=== PATIENT | male | born 1980 | race Caucasian/White ===

== ENCOUNTER 2016-10-17 18:42 | Emergency (ER) | payer MEDICAID, OTHER ==
[2016-10-17 18:47] VITALS: BP 164/83; PULSE 87; RESP 16; TEMP 98.3; O2SAT 97
--- NOTE | 2016-10-17 20:05 | ED PDOC ---
HPI: Psych/Substance Abuse Time Seen by Provider: 10/17/16 18:56 Chief Complaint (Nursing): Alcohol Ingestion Past Medical History Vital Signs: Last Vital Signs Temp 98.3 F 10/17/16 18:44 Pulse 87 10/17/16 18:44 Resp 16 10/17/16 18:44 BP 164/83 H 10/17/16 18:44 Pulse Ox 97 10/17/16 18:44 - Family History Family History: States: Unknown Family Hx - Immunization History Hx Tetanus Toxoid Vaccination: No Hx Influenza Vaccination: No Hx Pneumococcal Vaccination: No - Home Medications Home Medications: Ambulatory Orders Medication Instructions Recorded Ibuprofen [Motrin Tab] 800 mg PO Q8 #15 tab 12/26/15 - Allergies Allergies/Adverse Reactions: Allergies Allergy/AdvReac Type Severity Reaction Status Date / Time No Known Allergies Allergy Verified 12/26/15 10:37 - ECG O2 Sat by Pulse Oximetry: 97 Disposition - Clinical Impression Clinical Impression: Alcohol abuse - Patient ED Disposition Is Patient to be Admitted: No Counseled Patient/Family Regarding: Diagnosis, Need For Followup - Disposition Disposition: Routine/Home Disposition Time: 20:05 Condition: GOOD Instructions: Abuse of Alcohol (ED)
== END 2016-10-17 21:14 | disposition home or self-care (01) ==
LOC: H.ER 18:42
DX: F10.10 Alcohol abuse, uncomplicated (principal)

== ENCOUNTER 2016-12-08 05:45 | Emergency (ER) | payer MEDICAID ==
[2016-12-08 06:03] VITALS: BP 157/94; PULSE 96; RESP 16; TEMP 98.9; O2SAT 98
--- NOTE | 2016-12-08 06:26 | ED PDOC ---
HPI: Psych/Substance Abuse Time Seen by Provider: 12/08/16 05:58 Chief Complaint (Nursing): Psychiatric Evaluation Chief Complaint (Provider): depression, SI History Per: Patient History/Exam Limitations: no limitations Onset/Duration Of Symptoms: Hrs Current Symptoms Are (Timing): Still Present Additional Complaint(s): 35yo male presents to the ED with c/o depression and thoughts of killing himself lately. Patient reports he was kicked out of home by his sister. Admits to smoking PCP. Denies any other medical or psychiatric complaints. Past Medical History Reviewed: Historical Data, Nursing Documentation, Vital Signs Vital Signs: Last Vital Signs Temp 98.9 F 12/08/16 05:59 Pulse 96 H 12/08/16 05:59 Resp 16 12/08/16 05:59 BP 157/94 H 12/08/16 05:59 Pulse Ox 98 12/08/16 05:59 - Medical History PMH: No Chronic Diseases - Surgical History Surgical History: No Surg Hx - Family History Family History: States: No Known Family Hx - Social History Drugs: Other (PCP ) - Immunization History Hx Tetanus Toxoid Vaccination: No Hx Influenza Vaccination: No Hx Pneumococcal Vaccination: No - Home Medications Home Medications: Ambulatory Orders Medication Instructions Recorded Ibuprofen [Motrin Tab] 800 mg PO Q8 #15 tab 12/26/15 - Allergies Allergies/Adverse Reactions: Allergies Allergy/AdvReac Type Severity Reaction Status Date / Time No Known Allergies Allergy Verified 12/26/15 10:37 Review of Systems ROS Statement: Except As Marked, All Systems Reviewed And Found Negative Psych: Positive for: Depression, Suicidal ideation Physical Exam - Reviewed Nursing Documentation Reviewed: Yes Vital Signs Reviewed: Yes - Physical Exam Appears: Positive for: No Acute Distress (depressed appearing ) Head Exam: Positive for: ATRAUMATIC, NORMAL INSPECTION, NORMOCEPHALIC Skin: Positive for: Normal Color, Warm, Dry Eye Exam: Positive for: Normal appearance, EOMI, PERRL ENT: Positive for: Normal ENT Inspection Neck: Positive for: Normal, Painless ROM, Supple Cardiovascular/Chest: Positive for: Regular Rate, Rhythm. Negative for: Murmur , Tachycardia Respiratory: Positive for: Normal Breath Sounds. Negative for: Wheezing, Respiratory Distress Gastrointestinal/Abdominal: Positive for: Normal Exam, Soft. Negative for: Tenderness Back: Positive for: Normal Inspection. Negative for: L CVA Tenderness, R CVA Tenderness Extremity: Positive for: Normal ROM. Negative for: Deformity, Swelling Neurologic/Psych: Positive for: Alert, Oriented - ECG O2 Sat by Pulse Oximetry: 98 Pulse Ox Interpretation: Normal (RA) Medical Decision Making Medical Decision Makin: Impression: depression Plan: crisis eval reassess [id number]: Patient evaluated by crisis and cleared for d/c. Return precautions given. Scribe Attestation: Documented by Jeyson Kaplan acting as a scribe for James Eli MD. Provider Scribe Attestation: All medical record entries made by the Scribe were at my direction and personally dictated by me. I have reviewed the chart and agree that the record accurately reflects my personal performance of the history, physical exam, medical decision making, and the department course for this patient. I have also personally directed, reviewed, and agree with the discharge instructions and disposition. Disposition - Clinical Impression Clinical Impression: Substance induced mood disorder - Patient ED Disposition Is Patient to be Admitted: No - Disposition Referrals: [facility] [Outside] Disposition: Routine/Home Disposition Time: 06:57 Condition: STABLE Instructions: Mood Disorders (ED), Suicide Prevention for Adults (DC), Polysubstance Abuse (ED)
== END 2016-12-08 07:06 | disposition home or self-care (01) ==
LOC: H.ER 05:45
DX: F39 Unspecified mood [affective] disorder (principal); F32.9 Major depressive disorder, single episode, unspecified